=== PATIENT | female | born 1990 | race Caucasian/White ===

== ENCOUNTER 2018-01-20 12:14 | Emergency (ER) | payer SELFPAY ==
[2018-01-20 12:25] VITALS: BP 110/68
[2018-01-20] MEDS ORDERED: IBUPROFEN 800 MG TABLET PO ONE (12:37)
--- NOTE | 2018-01-20 12:42 | ER Document Report ---
HPI - HPI Patient complains to provider of: right foot pain Onset: Yesterday Onset/Duration: Sudden Quality of pain: Achy Severity: Severe Pain Level: 4 Context: Patient presents emergency department with complaints of right foot pain. Patient reports she was horsing around and hurt her foot she is not sure how. Reports it hurts to walk on it. No complaints of other symptoms such as fever vomiting diarrhea. Associated Symptoms: None Exacerbated by: Walking Relieved by: Denies Similar symptoms previously: No Recently seen / treated by doctor: No - CONSTITUTIONAL Constitutional: DENIES: Fever, Chills - EENT EENT: DENIES: Sore Throat, Ear Pain, Eye problems - NEURO Neurology: DENIES: Headache, Weakness, Vision blurred, Dizzinesss / Vertigo - CARDIOVASCULAR Cardiovascular: DENIES: Chest pain - RESPIRATORY Respiratory: DENIES: Trouble Breathing, Coughing - GASTROINTESTINAL Gastrointestinal: DENIES: Abdominal Pain, Black / Bloody Stools - URINARY Urinary: DENIES: Dysuria, Urgency, Frequency - MUSCULOSKELETAL Musculoskeletal: REPORTS: Extremity pain - right foot Past Medical History - General Information source: Patient Last Menstrual Period: december - Social History Smoking Status: Current Every Day Smoker Cigarette use (# per day): Yes Chew tobacco use (# tins/day): No Frequency of alcohol use: Occasional Drug Abuse: None Occupation: [employer] Family History: None Patient has suicidal ideation: No Patient has homicidal ideation: No - Medical History Medical History: Negative Renal/ Medical History: Denies: Hx Peritoneal Dialysis Past Surgical History: Reports: Hx Section Vertical Provider Document - CONSTITUTIONAL Agree With Documented VS: Yes Exam Limitations: No Limitations General Appearance: WD/WN, No Apparent Distress - INFECTION CONTROL TRAVEL OUTSIDE OF THE [place] IN LAST 30 DAYS: No - HEENT HEENT: Atraumatic, Normocephalic - NECK Neck: Supple - RESPIRATORY Respiratory: Breath Sounds Normal, No Respiratory Distress - CARDIOVASCULAR Cardiovascular: Regular Rate - MUSCULOSKELETAL/EXTREMETIES Musculoskeletal/Extremeties: MAEW, FROM, Tender - right foot ttp, ecchymosis over 1st metatarsal, great toe, good pedal pulse, good cap refill, wiggles toes without problem - NEURO Level of Consciousness: Awake, Alert, Appropriate Motor/Sensory: No Motor Deficit - DERM Integumentary: Warm, Dry Course - Re-evaluation Re-evalutation: 01/20/18 13:12 X-ray negative. Patient will be placed Ned wrap and crutches told to take Motrin for pain and follow-up with orthopedics for continued pain. Understanding verbalized - Vital Signs Vital signs: Temp Pulse Resp BP Pulse Ox 97.9 F 97 20 110/68 97 01/20/18 12:24 01/20/18 12:24 01/20/18 12:24 01/20/18 12:24 01/20/18 12:24 - Diagnostic Test Radiology reviewed: Image reviewed, Reports reviewed - EXAM DESCRIPTION: FOOT RIGHT COMPLETE COMPLETED DATE/TIME: 01/20/2018 12:55 pm REASON FOR STUDY: pain COMPARISON: None. NUMBER OF VIEWS: Three views right foot. LIMITATIONS: None. FINDINGS: Normal bone density. Foreshortening of the left 4th toe, diminutive metatarsal. No subluxation or dislocation or acute fracture , however. Soft tissues normal. No radiopaque foreign body. OTHER: No other significant finding. 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 Discharge - Discharge Clinical Impression: Right foot pain Condition: Stable Disposition: HOME, SELF-CARE Instructions: Ned Wrap ([facility]), Use of Crutches ([facility]), Use of Ctyg-Tts-Pjcaknx Ibuprofen ([facility]) Additional Instructions: *You have been evaluated for foot pain *Rest/Ice/Elevate your foot *Maintain the ned wrap for three days, use the crutches for comfort *Follow up with orthopedics-call for an appointment *Take ibuprofen as indicated *Return to ED for worsening condition, changes, needs Forms: Return to Work
--- NOTE | 2018-01-20 13:07 | RADIOLOGY REPORT (SQ) ---
EXAM DESCRIPTION: FOOT RIGHT COMPLETE COMPLETED DATE/TIME: 01/20/2018 12:55 pm REASON FOR STUDY: pain COMPARISON: None. NUMBER OF VIEWS: Three views right foot. LIMITATIONS: None. FINDINGS: Normal bone density. Foreshortening of the left 4th toe, diminutive metatarsal. No sublu xation or dislocation or acute fracture, however. Soft tissues normal. No radiopaque foreign body. OTHER: No other significant finding. 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 TECHNICAL DOCUMENTATION: JOB ID: [id number] Reading location - IP/workstation name: [email or web address]
== END 2018-01-20 13:30 | disposition home or self-care (01) ==
LOC: ER 12:14
DX: S90.31XA Contusion of right foot, initial encounter (principal); X58.XXXA Exposure to other specified factors, initial encounter; Q66.89 Other specified congenital deformities of feet; M79.671 Pain in right foot; F17.210 Nicotine dependence, cigarettes, uncomplicated
CPT/HCPCS: 99283